=== PATIENT | male | born 1950 | race Caucasian/White ===

== ENCOUNTER 2019-02-13 13:12 | Emergency (ER) | payer OTHER ==
[2019-02-13] MEDS ORDERED: MORPHINE 4 MG/ML SYR ONE (13:28)
[2019-02-13] MEDS ORDERED: TETANUS & DIPHTHERIA TOX,ADULT 0.5 ML VIAL ONE (13:29)
[2019-02-13] MEDS ORDERED: ONDANSETRON 4 MG/2 ML VIAL ONE (13:29)
[2019-02-13 13:52] LABS: Absolute Lymphocytes (CBC) 1.9 K/uL (0.7-4.9); Basophils % 0.6 % (0-1.3); Hematocrit 43.9 % (39.6-49.0); Lymphocytes % 23.9 % (15.3-44.8); MPV 8.7 fL (7.6-11.3); RBC Red Blood Cell Count 4.82 M/uL (4.33-5.43)
--- NOTE | 2019-02-13 13:56 | RAD REPORT ---
EXAM DESCRIPTION: RAD - Forearm Right - 02/13/2019 1:48 pm CLINICAL HISTORY: Right arm pain status post fall FINDINGS: No fracture is seen.
[2019-02-13 14:07] LABS: Potassium 4.6 mmol/L (3.5-5.1)
--- NOTE | 2019-02-13 14:14 | RAD REPORT ---
EXAM DESCRIPTION: RAD - Foot Right 3 View - 02/13/2019 1:48 pm CLINICAL HISTORY: Right foot pain status post injury FINDINGS: Deformity of the first metatarsal likely secondary to prior surgery No fracture or dislocation seen
--- NOTE | 2019-02-13 14:18 | RAD REPORT ---
EXAM DESCRIPTION: CT - Head C Spine Cap Wo Con - 02/13/2019 1:49 pm TECHNIQUE: Computed axial tomography of the head and cervical spine was obtained. Coronal and sagitt al reconstruction was performed Computed axial tomography of the chest, abdomen and pelvis was obtained. Contrast was not requested. All CT scans are performed using dose optimization technique as appropriate and may include automated exposure control or mA/KV adjustment according to patient size. CLINICAL HISTORY: Head and neck injury with chest and abdominal pain status post fall COMPARISON: None FINDINGS: An intracranial bleed is not seen. The ventricles are normal in caliber. An extra-axial fluid collection is not noted. Small low-density area within the right basal ganglia has the appearance of an old lacunar infarction. . Fluid within the sinuses/mastoids is not seen. A cervical fracture is not seen. No dislocation is noted. The evaluation of mediastinum, gemma, vessels, solid organs and bowel are limited secondary to the lac k of contrast administration. A mediastinal hematoma is not noted. A pleural effusion is not seen. A lung contusion is not present. Moderate hiatal hernia The liver,spleen, pancreas, adrenals,kidneys and bladder appear grossly normal. Subtle cortical irregularity involves the superior vertebral endplate of T12 Small to moderate inguinal hernias contain small portion of small bowel Prostate gland mildly to moderately enlarged IMPRESSION: 1. No acute intracranial abnormality is seen. 2. A cervical fracture is not visualized. If the patient continues have symptoms to suggest intracran ial/spinal cord pathology MRI be recommended 3. Subtle cortical irregularity involving the superior vertebral endplate of T12 is equivocal for a m inimal fracture. If the patient has pain in this region then further evaluation with MRI would be hel pful 4. Otherwise, no traumatic injury involving the chest, abdomen/pelvis is seen
[2019-02-13] MEDS ORDERED: HYDROCODONE/APAP 7.5/325 MG TAB ONE (15:21)
--- NOTE | 2019-02-13 15:35 | ER ---
Nurse's Notes [facility] Name: Jimmie Gonzalez Age: 68 yrs Sex: Male : 1950 Arrival Date: 02/13/2019 Time: 13:14 Bed 4 Private MD: Diagnosis: Fall on and from ladder;Wedge compression fracture of T11-T12 vertebra Presentation: 02/13 13:22 Presenting complaint: Patient states: He was working on [employer], when the ladder aj1 slipped under him in the sand and he fell landing on his back. 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 Reports lower back pain, right forearm pain and right heel pain. Abrasion noted to right FA. Abrasion noted to left ankle. Transition of care: patient was not received from another setting of care. Onset of symptoms was February 13, 2019. Risk Assessment: Do you want to hurt yourself or someone else? Patient reports no desire to harm self or others. Initial Sepsis Screen: Does the patient meet any 2 criteria? No. Patient's initial sepsis screen is negative. Does the patient have a suspected source of infection? No. Patient's initial sepsis screen is negative. Care prior to arrival: None. 13:22 Method Of Arrival: Wheelchair aj 13:22 Acuity: TATIANA 2 aj1 13:27 Mechanism of Injury: Fall from ladder approximately 13 feet. Trauma event details: aj1 Injury occurred in the [facility]. Triage Assessment: 13:25 General: Appears uncomfortable, Behavior is calm, cooperative, appropriate for age. aj1 Pain: Complains of pain in low back area, heel of right foot and palmar aspect of right forearm Pain currently is 8 out of 10 on a pain scale. 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 Cardiovascular: Patient's skin is warm and dry. Respiratory: Airway is patent Respiratory effort is even, unlabored, Respiratory pattern is regular, symmetrical. Trauma Activation: Alert Physician: ED Physician; Name: Dr. Clements; Notified At: ; Arrived At: Physician: General Surgeon; Name: N/a; Notified At: ; Arrived At: Physician: Radiology; Name: ; Notified At: ; Arrived At: Physician: Respiratory; Name: ; Notified At: ; Arrived At: Physician: Lab; Name: ; Notified At: ; Arrived At: Historical: - Allergies: 13:25 No Known Allergies; aj1 - Home Meds: 13:25 Synthroid Oral [Active]; pravastatin oral oral [Active]; aj1 - PMHx: 13:25 Hypothyroidism; Hyperlipidemia; aj1 - Immunization history:: Last tetanus immunization: < 5 years ago. - Social history:: Smoking status: Patient/guardian denies using tobacco. - Ebola Screening: : Patient negative for fever greater than or equal to 101.5 degrees Fahrenheit, and additional compatible Ebola Virus Disease symptoms Patient denies exposure to infectious person Patient denies travel to an Ebola-affected area in the 21 days before illness onset No symptoms or risks identified at this time. Screenin:10 Abuse screen: Denies threats or abuse. Denies injuries from another. Nutritional sg screening: No deficits noted. Tuberculosis screening: No symptoms or risk factors identified. Never had TB. Fall Risk None identified. Primary Survey: 13:30 NO uncontrolled hemorrhage observed. Breathing/Chest: Respiratory pattern: regular, iw Respiratory effort: spontaneous. Circulation: Heart tones present. Disability Alert. Exposure/Environment: All clothing and personal items were removed. Forensic evidence collection is not deemed to be indicated at this time. Items placed in patient belonging bag. There is no evidence of uncontrolled external bleeding. 14:00 Reassessment Breathing/Chest Respiratory pattern Regular Circulation Heart rhythm Sinus iw rhythm Disability Alert. Secondary Survey: 13:30 HEENT: No deficits noted. Head No injury/deformity Face No injury/deformity Eyes: No sg injury or deformity noted. to bilateral eyes. Ears: clear bilaterally. Nose: clear to bilateral nares. Throat: No injury or deformity noted. Gastrointestinal: Abdomen is soft, non-distended. : No signs and/or symptoms were reported regarding the genitourinary system. Musculoskeletal: Circulation, motion, and sensation intact. Range of motion: intact in all extremities, Swelling absent Reports pain in left calf and lumbar area and right arm and right foot. Injury Description: Abrasion sustained to left calf and palmar aspect of right forearm is dried blood noted to the abrasion on the palmar aspect of right forearm was sustained 1-2 hours ago. Assessment: 13:22 Reassessment: Dr. Clements at bedside. aj1 13:25 General: Appears in no apparent distress. Behavior is calm, cooperative. Pain: iw Complains of pain in right arm and back and heel of right foot and palmar aspect of right forearm and low back area. Neuro: Level of Consciousness is awake, alert, obeys commands, Oriented to person, place, time, situation, Moves all extremities. Full function. Cardiovascular: Patient's skin is warm and dry. Respiratory: Respiratory effort is even, unlabored, Respiratory pattern is regular. GI: Abdomen is flat, non-distended. Derm: Skin is intact. Musculoskeletal: Range of motion: intact in all extremities, Reports pain in back. Injury Description: Abrasion sustained to palmar aspect of right forearm. 14:30 Reassessment: Patient appears in no apparent distress at this time. General: Behavior sg is calm, cooperative, appropriate for age. Neuro: Level of Consciousness is awake, alert, obeys commands, Oriented to person, place, time, situation, Moves all extremities. Full function Speech is normal, Facial symmetry appears normal. Cardiovascular: Patient's skin is warm and dry. Chest pain is denied. Respiratory: Respiratory effort is even, unlabored, Respiratory pattern is regular, symmetrical. GI: Abdomen is round non-distended. Derm: Skin is intact, Skin is pink, warm \T\ dry. Musculoskeletal: Circulation, motion, and sensation intact. Range of motion: intact in all extremities. 15:49 Reassessment: Patient appears in no apparent distress at this time. Patient and/or sg family updated on plan of care and expected duration. Pain level reassessed. Patient is alert, oriented x 3, equal unlabored respirations, skin warm/dry/pink. awaiting xray/CT images to be placed on a disc at this time spoke with eldon for copies of films. 16:50 Reassessment: Patient appears in no apparent distress at this time. Patient and/or sg family updated on plan of care and expected duration. Pain level reassessed. Patient is alert, oriented x 3, equal unlabored respirations, skin warm/dry/pink. pt given CT/XRAY films on CD and discharged to home ambulatory steady gait with daughter and at this time. Vital Signs: 13:25 BP 140 / 76; Pulse 82; Resp 18; Temp 98.1; Pulse Ox 99% on R/A; Weight 92.53 kg (R); aj1 Height 5 ft. 11 in. (180.34 cm) (R); Pain 8/10; 14:15 BP 136 / 72; Pulse 87; Resp 17; Pulse Ox 99% on R/A; sg 15:15 BP 132 / 70; Pulse 79; Resp 17; Pulse Ox 98% on R/A; Pain 4/10; sg 15:50 BP 135 / 77; Pulse 80; Resp 17; Temp 98.1; Pulse Ox 99% on R/A; Pain 4/10; sg 13:25 Body Mass Index 28.45 (92.53 kg, 180.34 cm) aj1 Alexandria Coma Score: 13:25 Eye Response: spontaneous(4). Verbal Response: oriented(5). Motor Response: obeys sg commands(6). Total: 15. 14:15 Eye Response: spontaneous(4). Verbal Response: oriented(5). Motor Response: obeys sg commands(6). Total: 15. 15:50 Eye Response: spontaneous(4). Verbal Response: oriented(5). Motor Response: obeys sg commands(6). Total: 15. Trauma Score (Adult): 13:25 Eye Response: spontaneous(1); Verbal Response: oriented(1); Motor Response: obeys sg commands(2); Systolic BP: > 89 mm Hg(4); Respiratory Rate: 10 to 29 per min(4); Alexandria Score: 15; Trauma Score: 12 14:15 Eye Response: spontaneous(1); Verbal Response: oriented(1); Motor Response: obeys sg commands(2); Systolic BP: > 89 mm Hg(4); Respiratory Rate: 10 to 29 per min(4); Jose Raul Score: 15; Trauma Score: 12 15:15 Eye Response: spontaneous(1); Verbal Response: oriented(1); Motor Response: obeys sg commands(2); Systolic BP: > 89 mm Hg(4); Respiratory Rate: 10 to 29 per min(4); Jose Raul Score: 15; Trauma Score: 12 15:50 Eye Response: spontaneous(1); Verbal Response: oriented(1); Motor Response: obeys sg commands(2); Systolic BP: > 89 mm Hg(4); Respiratory Rate: 10 to 29 per min(4); Alexandria Score: 15; Trauma Score: 12 ED Course: 13:14 Patient arrived in ED. mr 13:16 Jones Clements MD is Attending Physician. kdr 13:21 Patient has correct armband on for positive identification. Placed in gown. Bed in low mh5 position. Call light in reach. Side rails up X2. Adult w/ patient. Warm blanket given. Pulse ox on. NIBP on. 13:22 Niki Sheriff, RN is Primary Nurse. aj1 13:24 Triage completed. aj1 13:25 Arm band placed on Patient triaged in ER bed 4. aj1 13:42 Inserted saline lock: 20 gauge in left antecubital area, using aseptic technique. Blood iw collected. 13:47 Primary Nurse role handed off by Niki Sheriff RN iw 13:47 Priscilla Aguero, RN is Primary Nurse. iw 13:52 Foot Right 3 View XRAY In Process Unspecified. EDMS 13:52 Forearm Right XRAY In Process Unspecified. EDMS 13:52 CT Traumagram (Head C Spine CAP wo con) In Process Unspecified. EDMS 14:00 Patient maintains SpO2 saturation greater than 95% on room air. Thermoregulation: warm sg blanket given to patient. 14:04 Primary Nurse role handed off by Priscilla Aguero, RN sg 14:04 Darren Lopez, RN is Primary Nurse. sg 15:40 Wound care: to abrasion, located on palmar aspect of right forearm was cleaned with sg Hibiclens, dressed with Neosporin, 4X4s, Kerlix. 15:50 No provider procedures requiring assistance completed. IV discontinued, intact, sg bleeding controlled, No redness/swelling at site. Pressure dressing applied. Administered Medications: 13:35 Drug: morphine 4 mg Route: IVP; Site: left antecubital; iw 13:35 Drug: Zofran 4 mg Route: IVP; Site: left antecubital; iw 13:42 Not Given (tetanus up to date): Tetanus-Diphtheria Toxoid Adult 0.5 ml IM once iw 15:20 Drug: Quinn (7.5 mg-325 mg) 1 tabs Route: PO; sg Output: 15:50 Urine: 0ml; Total: 0ml. sg Outcome: 15:34 Discharge ordered by . kdr 15:56 Discharged to home ambulatory, with family. sg 15:56 Condition: stable 15:56 Discharge instructions given to patient, Instructed on discharge instructions, follow up and referral plans. no drinking with medication, no driving heavy equipment, medication usage, safety practices, Demonstrated understanding of instructions, follow-up care, medications, Prescriptions given X 3. 15:58 Patient's length of stay in the Emergency Department was greater than 2 hours. 16:54 Patient left the ED. iw Signatures: Dispatcher [employer] EDNiki Valdes RN RN 1 Darren Lopez RN RN sg Rittger, Kevin, MD MD kdr Rivera, Mary mr Williams, Irene, RN RN iw Martinez, Maria [facility]
--- NOTE | 2019-02-13 15:35 | EDPHYS ---
Physician Documentation [facility] Name: Jimmie Gonzalez Age: 68 yrs Sex: Male : 1950 Arrival Date: 02/13/2019 Time: 13:14 Bed 4 Private MD: ED Physician Jones Clements HPI: 02/13 16:26 This 68 yrs old Male presents to ER via Wheelchair with complaints of Fall kdr Injury from ladder. 16:26 Details of fall: The patient fell from a height, from a ladder, approximately 6 feet, kdr from an upright position, while standing, while walking. Onset: The symptoms/episode began/occurred acutely, just prior to arrival. Associated injuries: The patient sustained upper back injury, palmar aspect of right forearm, abrasion, contusion, decreased range of motion, painful injury, swelling. Severity of symptoms: At their worst the symptoms were mild, in the emergency department the symptoms are unchanged. The patient has not experienced similar symptoms in the past. The patient has not recently seen a physician. The patient was on a ladder working on a raised deck that was 13" in the air. The ladder fell forward and he fell backward landing on his back on the rungs of the ladder on his back. He denies LOC. He felt light headed and near syncopal but after was able to get up and sit in a chair. Historical: - Allergies: 13:25 No Known Allergies; aj1 - Home Meds: 13:25 Synthroid Oral [Active]; pravastatin oral oral [Active]; aj1 - PMHx: 13:25 Hypothyroidism; Hyperlipidemia; aj1 - Immunization history:: Last tetanus immunization: < 5 years ago. - Social history:: Smoking status: Patient/guardian denies using tobacco. - Ebola Screening: : Patient negative for fever greater than or equal to 101.5 degrees Fahrenheit, and additional compatible Ebola Virus Disease symptoms Patient denies exposure to infectious person Patient denies travel to an Ebola-affected area in the 21 days before illness onset No symptoms or risks identified at this time. ROS: 16:26 Constitutional: Negative for fever, chills, and weight loss, Eyes: Negative for injury, kdr pain, redness, and discharge, ENT: Negative for injury, pain, and discharge, Neck: Negative for injury, pain, and swelling, Cardiovascular: Negative for chest pain, palpitations, and edema, Respiratory: Negative for shortness of breath, cough, wheezing, and pleuritic chest pain, Abdomen/GI: Negative for abdominal pain, nausea, vomiting, diarrhea, and constipation, : Negative for injury, bleeding, discharge, and swelling, MS/Extremity: Negative for injury and deformity, Skin: Negative for injury, rash, and discoloration, Neuro: Negative for headache, weakness, numbness, tingling, and seizure activity. Psych: Negative for depression, anxiety, suicide ideation, homicidal ideation, and hallucinations, Allergy/Immunology: Negative for hives, rash, and allergies, Endocrine: Negative for neck swelling, polydipsia, polyuria, polyphagia, and marked weight changes, Hematologic/Lymphatic: Negative for swollen nodes, abnormal bleeding, and unusual bruising. 16:26 Back: Positive for pain at rest, pain with movement, of the lumbar area, Negative for decreased range of motion. Exam: 16:26 Constitutional: This is a well developed, well nourished patient who is awake, alert, kdr and in no acute distress. Head/Face: Normocephalic, atraumatic. Eyes: Pupils equal round and reactive to light, extra-ocular motions intact. Lids and lashes normal. Conjunctiva and sclera are non-icteric and not injected. Cornea within normal limits. Periorbital areas with no swelling, redness, or edema. Neck: Trachea midline, no thyromegaly or masses palpated, and no cervical lymphadenopathy. Supple, full range of motion without nuchal rigidity, or vertebral point tenderness. No Meningismus. Chest/axilla: Normal chest wall appearance and motion. Nontender with no deformity. No lesions are appreciated. Cardiovascular: Regular rate and rhythm with a normal S1 and S2. No gallops, murmurs, or rubs. Normal PMI, no JVD. No pulse deficits. Respiratory: Lungs have equal breath sounds bilaterally, clear to auscultation and percussion. No rales, rhonchi or wheezes noted. No increased work of breathing, no retractions or nasal flaring. Abdomen/GI: Soft, non-tender, with normal bowel sounds. No distension or tympany. No guarding or rebound. No evidence of tenderness throughout. Skin: Warm, dry with normal turgor. Normal color with no rashes, no lesions, and no evidence of cellulitis. MS/ Extremity: Pulses equal, no cyanosis. Neurovascular intact. Full, normal range of motion. Neuro: Awake and alert, GCS 15, oriented to person, place, time, and situation. Cranial nerves II-XII grossly intact. Motor strength 5/5 in all extremities. Sensory grossly intact. Cerebellar exam normal. Normal gait. Psych: Awake, alert, with orientation to person, place and time. Behavior, mood, and affect are within normal limits. 16:26 Back: pain, that is mild, of the lumbar area, ROM is painful, with all movement, normal spinal alignment noted, CVA tenderness, is absent, vertebral tenderness, is appreciated at T11, T12 and L1. Vital Signs: 13:25 BP 140 / 76; Pulse 82; Resp 18; Temp 98.1; Pulse Ox 99% on R/A; Weight 92.53 kg (R); aj1 Height 5 ft. 11 in. (180.34 cm) (R); Pain 8/10; 14:15 BP 136 / 72; Pulse 87; Resp 17; Pulse Ox 99% on R/A; sg 15:15 BP 132 / 70; Pulse 79; Resp 17; Pulse Ox 98% on R/A; Pain 4/10; sg 15:50 BP 135 / 77; Pulse 80; Resp 17; Temp 98.1; Pulse Ox 99% on R/A; Pain 4/10; sg 13:25 Body Mass Index 28.45 (92.53 kg, 180.34 cm) aj1 Cleghorn Coma Score: 13:25 Eye Response: spontaneous(4). Verbal Response: oriented(5). Motor Response: obeys sg commands(6). Total: 15. 14:15 Eye Response: spontaneous(4). Verbal Response: oriented(5). Motor Response: obeys sg commands(6). Total: 15. 15:50 Eye Response: spontaneous(4). Verbal Response: oriented(5). Motor Response: obeys sg commands(6). Total: 15. Trauma Score (Adult): 13:25 Eye Response: spontaneous(1); Verbal Response: oriented(1); Motor Response: obeys sg commands(2); Systolic BP: > 89 mm Hg(4); Respiratory Rate: 10 to 29 per min(4); Cleghorn Score: 15; Trauma Score: 12 14:15 Eye Response: spontaneous(1); Verbal Response: oriented(1); Motor Response: obeys sg commands(2); Systolic BP: > 89 mm Hg(4); Respiratory Rate: 10 to 29 per min(4); Cleghorn Score: 15; Trauma Score: 12 15:15 Eye Response: spontaneous(1); Verbal Response: oriented(1); Motor Response: obeys sg commands(2); Systolic BP: > 89 mm Hg(4); Respiratory Rate: 10 to 29 per min(4); Cleghorn Score: 15; Trauma Score: 12 15:50 Eye Response: spontaneous(1); Verbal Response: oriented(1); Motor Response: obeys sg commands(2); Systolic BP: > 89 mm Hg(4); Respiratory Rate: 10 to 29 per min(4); Jose Raul Score: 15; Trauma Score: 12 MDM: 15:34 Patient medically screened. kdr 16:26 Data reviewed: vital signs, nurses notes, lab test result(s), radiologic studies. kdr Counseling: I had a detailed discussion with the patient and/or guardian regarding: the historical points, exam findings, and any diagnostic results supporting the discharge/admit diagnosis, lab results, radiology results, the need for outpatient follow up. 02/13 13:23 Order name: Basic Metabolic Panel; Complete Time: 14:47 kdr 02/13 13:23 Order name: CBC with Diff; Complete Time: 14:47 kdr 02/13 13:23 Order name: Foot Right 3 View XRAY; Complete Time: 14:47 kdr 02/13 13:23 Order name: Forearm Right XRAY; Complete Time: 14:47 kdr 02/13 13:23 Order name: Creatinine for Radiology; Complete Time: 14:47 kdr 02/13 13:23 Order name: CT Traumagram (Head C Spine CAP wo con); Complete Time: 14:47 kdr 02/13 13:23 Order name: Labs collected and sent; Complete Time: 13:42 kdr Administered Medications: 13:35 Drug: morphine 4 mg Route: IVP; Site: left antecubital; iw 13:35 Drug: Zofran 4 mg Route: IVP; Site: left antecubital; iw 13:42 Not Given (tetanus up to date): Tetanus-Diphtheria Toxoid Adult 0.5 ml IM once iw 15:20 Drug: Carmen (7.5 mg-325 mg) 1 tabs Route: PO; sg Disposition: 02/13/19 15:34 Discharged to Home. Impression: Fall on and from ladder, Wedge compression fracture of T11-T12 vertebra. - Condition is Stable. - Discharge Instructions: Spinal Compression Fracture. - Prescriptions for Ibuprofen 600 mg Oral Tablet - take 1 tablet by ORAL route every 6 hours As needed take with food; 16 tablet. Tylenol- Codeine #3 300-30 mg Oral Tablet - take 2 tablets by ORAL route every 6 hours As needed; 12 tablet. Cyclobenzaprine 10 mg Oral Tablet - take 1 tablet by ORAL route every 8 hours As needed; 15 tablet. - Medication Reconciliation Form, Thank You Letter, Prescription Opioid Use form. - Follow up: Private Physician; When: 2 - 3 days; Reason: If symptoms return, Further diagnostic work-up, Recheck today's complaints, Continuance of care, Re-evaluation by your physician. - Problem is new. - Symptoms have improved. Signatures: Dispatcher [employer] [facility] [place] Niki Sheriff RN RN aj1 Darren Lopez RN RN sg Jones Clements MD MD kdr Priscilla Aguero RN RN iw Corrections: (The following items were deleted from the chart) 15:57 13:24 TYPE AND SCREEN+[id number] ordered. [facility] 16:54 15:34 02/13/2019 15:34 Discharged to Home. Impression: Fall on and from ladder; Wedge iw compression fracture of T11-T12 vertebra. Condition is Stable. Forms are Medication Reconciliation Form, Thank You Letter, Antibiotic Education, Prescription Opioid Use. Follow up: Private Physician; When: 2 - 3 days; Reason: If symptoms return, Further diagnostic work-up, Recheck today's complaints, Continuance of care, Re-evaluation by your physician. Problem is new. Symptoms have improved. kdr
[2019-02-13 17:13] VITALS: BP 140/76; TEMP 98.1; O2SAT 99
== END 2019-02-13 16:54 | disposition home or self-care (01) ==
LOC: ER 13:12
DX: S22.080A Wedge compression fracture of T11-T12 vertebra, initial encounter for closed fracture (principal); W11.XXXA Fall on and from ladder, initial encounter; Y93.89 Activity, other specified; Y92.89 Other specified places as the place of occurrence of the external cause; Z23 Encounter for immunization; E03.9 Hypothyroidism, unspecified; E78.5 Hyperlipidemia, unspecified
CPT/HCPCS: 85025; 80048; 36415; 70450; 71250; 72125; 73630; 73090; 90714; J2405; 96374; 96375; 99285